=== PATIENT | male | born 2000 | race Caucasian/White ===

== ENCOUNTER 2024-07-24 09:49 | Emergency (ER) | payer BC ==
[~2024-07-24] VITALS: Ht 180.3 cm; Wt 59.0 kg
[2024-07-24 10:02] VITALS: BP 130/84; O2SAT 95
[2024-07-24] MEDS ORDERED: RINGERS SOLUTION,LACTATED 1,000 ML IV STA (11:03)
[2024-07-24] MEDS ORDERED: ONDANSETRON HCL 2 MG/ML VIAL IV STA (11:03)
[2024-07-24] MEDS ORDERED: FAMOtidine 10 MG/ML (4ML VIAL) IV STA (11:04)
[2024-07-24] MEDS ORDERED: METOCLOPRAMIDE HCL 5 MG/ML VIAL IV STA (11:05)
[2024-07-24 11:10] LABS: HEMOGLOBIN 15.8 g/dL (13-16.00); MEAN CELL VOLUME 88.8 fL (80.0-100.00); MEAN CORPUSCULAR HEMOGLOBIN 31.2 pg (27.00-32.0); MEAN CORPUSCULAR HGB CONC 35.1 g/dl (32.0-36.0); PLATELET COUNT 236 K/uL (150-450); RED BLOOD COUNT 5.07 M/uL (4.00-6.00); RED CELL DISTRIBUTION WIDTH 12.9 % (11.5-14.5)
[2024-07-24] MEDS ORDERED: HYOSCYAMINE SULFATE 0.125 MG TAB.SUBL SL ONE (11:15)
[2024-07-24 11:32] LABS: INR 1.14; PARTIAL THROMBOPLASTIN TIME 24.9 SECONDS (22.0-34.0); PROTHROMBIN TIME 12.3 SECONDS (9.0-11.5)
[2024-07-24 11:35] LABS: CALCIUM 10.1 mg/dL (8.5-10.1); CREATININE SERUM 1.08 mg/dL (0.70-1.30); GFR 85.5; POTASSIUM 4.33 mEq/L (3.5-5.1)
[2024-07-24 14:06] LABS: PH,URINE 6.5 (5.0-8.0); URINE APPEARANCE Clear; URINE BILIRRUBIN Negative (NEGATIVE); URINE BLOOD Negative; URINE COLOR Yellow; URINE GLUCOSE Negative (NEGATIVE); URINE LEUKOCYTE Negative; URINE NITRATE Negative; URINE PROTEIN 30 (NEGATIVE)
[2024-07-24 14:10] LABS: URINE BACTERIA 19.5 uL (0.0-1933); URINE RBC 4.1 uL (0.0-20.8); URINE WBC 3.4 uL (0.0-23.2)
[2024-07-24 14:13] LABS: URINE CAST 0.14 uL (0.0-1.40); URINE EPITHELIAL CELLS 1.2 uL (0.0-38.8); URINE KETONE >=160 (NEGATIVE)
[2024-07-24] MEDS ORDERED: ONDANSETRON ODT8 MG PO (16:48)
[2024-07-24] MEDS ORDERED: PEPCID AC20 MG PO (16:48)
[2024-07-24] MEDS ORDERED: CARAFATE1 GM PO (16:48)
== END 2024-07-24 17:14 | disposition home or self-care (01) ==
LOC: ER 09:51
PROVIDERS: General Practice
DX: R10.9 Unspecified abdominal pain (principal); R11.10 Vomiting, unspecified